=== PATIENT | female | born 1970 | race Two or more races ===

== ENCOUNTER 2017-12-21 12:34 | Emergency (ER) | payer SELFPAY ==
--- NOTE | 2017-12-21 13:05 | EDPHY ---
H & P Stated Complaint: c/o dizziness/elevated bp/lethargy/bilat foot pain x 2-3 days Time Seen by Provider: 12/21/17 13:05 - Medical/Surgical History Hx Asthma: No Hx Chronic Respiratory Disease: No Hx Diabetes: No Hx Cardiac Disease: Yes Hx Renal Disease: No Hx Cirrhosis: No Hx Alcoholism: No Hx HIV/AIDS: No Hx Splenectomy or Spleen Trauma: No Other PMH: hypertension - out of bp meds x 2 weeks, partial thyroidectomy - Social History Smoking Status: Current every day smoker Constitutional: Initial Vital Signs Temperature (C) 36.7 C 12/21/17 12:51 Heart Rate 78 12/21/17 12:51 Respiratory Rate 16 12/21/17 12:51 Blood Pressure 205/114 H 12/21/17 12:51 O2 Sat (%) 93 12/21/17 12:51 O2 Delivery Mode Room Air Allergies/Adverse Reactions: No Known Allergies Allergy (Unverified 12/21/17 12:56) Home Medications: Medication Instructions Recorded Lisinopril 10 mg PO DAILY #30 tablet 12/21/17 Unk Bp Med 12/21/17 Medical Decision Making ED Course/Re-evaluation: CHIEF COMPLAINT: Dizziness, off blood pressure meds HISTORY OF PRESENT ILLNESS: The patient is a 47 y/o female with a history of hypertension arriving with her son complaining of room-spinning dizziness for the last 2-3 days. She has associated nausea, but no vomiting. She has experienced similar symptoms once before when she was off her antihypertensives. She has been off her blood pressure medications for 2-3 months as she recently moved to [place] and has no local provider. She does not know the name of the medication she was on and says it was dispensed to her from a hospital in [place]. She denies severe headache, vision changes, weakness, paresthesias, slurred speech, fever, recent trauma, or recent illness. REVIEW OF SYSTEMS: A comprehensive 10 system review of systems is otherwise negative aside from elements mentioned in the history of present illness and medical decision making. PHYSICAL EXAM: HR, BP 205/114, O2 Sat, RR. Temp noted General Appearance: Alert, well hydrated, appropriate, and non-toxic appearing. Head: Atraumatic without scalp tenderness or obvious injury Eyes: Pupils equal, round, reactive to light and accommodation, EOMI, no trauma , no injection. Nose: Atraumatic, no rhinorrhea, clear. Throat: Mucus membranes moist. Neck: Supple, nontender, no lymphadenopathy. Respiratory: No retractions, no distress, no wheezes, and no accessory muscle use. Lungs are clear to auscultation bilaterally. Cardiovascular: Regular rate and rhythm, no murmurs, rubs, or gallops. Good capillary refill all extremities. Gastrointestinal: Abdomen is soft, nontender, non-distended, no masses, no rebound, no guarding, no peritoneal signs. Musculoskeletal: Normal active ROM of all extremities, atraumatic. Neurological: Alert, appropriate, and interactive. The patient has non-focal cranial nerves, motor, sensory, and cerebellar exam. Skin: No rashes, good turgor, no nodules on palpation. Past medical history: Hypertension Past surgical history: Noncontributory Family history: Noncontributory Social history: Son at bedside. Recently [place]. No local providers. DIFFERENTIAL DIAGNOSIS: The differential diagnosis for the patient's dizziness included but was not limited to peripheral and central causes of vertigo, orthostatic causes including dehydration, cardiogenic and neurogenic causes, and blood loss. MEDICAL DECISION MAKING: This is a 47 y/o female with a history of hypertension now off medications for 2 -3 months who presents with a 2-3-day history of room-spinning dizziness and nausea. Symptoms feel similar to prior episode when she was off her medications. She has a normal exam with no focal deficits. Plan for IV, labs, symptom management. Meclizine PO 25mg ordered WBC is elevated. UA ordered. Kidney function is normal. 10mg PO lisinopril ordered. Reassessed patient. She is feeling improved. Case management has arranged an outpatient visit for her at [facility] to establish care. She will be discharged with script for lisinopril along with standard care instructions. Return precautions discussed. She and her son are comfortable with this plan. - Data Points Laboratory Results: Laboratory Results 12/21/17 13:20 12/21/17 13:20 12/21/17 12/21/17 12/21/17 15:01 13:33 13:20 WBC RBC Hgb Hct MCV MCH MCHC RDW Plt Count MPV Neut % (Auto) Lymph % (Auto) Ripley % (Auto) Eos % (Auto) Baso % (Auto) Nucleat RBC Rel Count Absolute Neuts (auto) Absolute Lymphs (auto) Absolute Monos (auto) Absolute Eos (auto) Absolute Basos (auto) Absolute Nucleated RBC Immature Gran % Seg Neutrophils % Band Neutrophils % Lymphocytes % Monocytes % Eosinophils % Basophils % Metamyelocytes % Myelocytes % Promyelocytes % Blast Cells % Immature Gran # Absolute Seg Neuts Absolute Band Neuts Absolute Lymphocytes Absolute Monocytes Absolute Eosinophils Absolute Basophils Absolute Metamyelocyte Absolute Myelocytes Absolute Promyelocytes Absolute Plasma Cells Absolute Blast Cells Plasma Cells % Smudge Cells Platelet Estimate Polychromasia Microcytic Cells Echinocytes Elliptocytes Smear Review By Sodium 137 mEq/L mEq/L (135-145) Potassium 4.5 mEq/L mEq/L (3.3-5.0) Chloride 104 mEq/L mEq/L (97-110) Carbon Dioxide 25 mEq/l mEq/l (22-31) Anion Gap 8 mEq/L mEq/L (6-14) BUN 12 mg/dL mg/dL (7-23) Creatinine 0.6 mg/dL mg/dL (0.6-1.0) Estimated GFR > 60 Glucose 90 mg/dL mg/dL (70-100) Calcium 9.3 mg/dL mg/dL (8.5-10.4) POC Troponin I 0.01 ng/mL ng/mL (0.00-0.08) Urine Color PALE YELLOW Urine Appearance CLEAR Urine pH 6.0 (5.0-7.5) Ur Specific Udell 1.008 (1.002-1.030) Urine Protein NEGATIVE (NEGATIVE) Urine Ketones NEGATIVE (NEGATIVE) Urine Blood NEGATIVE (NEGATIVE) Urine Nitrate NEGATIVE (NEGATIVE) Urine Bilirubin NEGATIVE (NEGATIVE) Urine Urobilinogen NEGATIVE EU EU (0.2-1.0) Ur Leukocyte Esterase NEGATIVE (NEGATIVE) Urine RBC 1-3 /hpf /hpf (0-3) Urine WBC 1-3 /hpf /hpf (0-3) Ur Epithelial Cells TRACE /lpf /lpf (NONE-1+) Urine Glucose NEGATIVE (NEGATIVE) 12/21/17 13:20 WBC 16.55 10^3/uL H 10^3/uL (3.80-9.50) RBC 5.44 10^6/uL H 10^6/uL (4.18-5.33) Hgb 12.6 g/dL g/dL (12.6-16.3) Hct 40.9 % % (38.0-47.0) MCV 75.2 fL L fL (81.5-99.8) MCH 23.2 pg L pg (27.9-34.1) MCHC 30.8 g/dL L g/dL (32.4-36.7) RDW 18.1 % H % (11.5-15.2) Plt Count 231 10^3/uL 10^3/uL (150-400) MPV 11.8 fL H fL (8.7-11.7) Neut % (Auto) 39.2 % L % (39.3-74.2) Lymph % (Auto) 55.9 % H % (15.0-45.0) Ripley % (Auto) 3.7 % L % (4.5-13.0) Eos % (Auto) 0.5 % L % (0.6-7.6) Baso % (Auto) 0.3 % % (0.3-1.7) Nucleat RBC Rel Count 0.0 % % (0.0-0.2) Absolute Neuts (auto) 6.49 10^3/uL 10^3/uL (1.70-6.50) Absolute Lymphs (auto) 9.25 10^3/uL H 10^3/uL (1.00-3.00) Absolute Monos (auto) 0.61 10^3/uL 10^3/uL (0.30-0.80) Absolute Eos (auto) 0.09 10^3/uL 10^3/uL (0.03-0.40) Absolute Basos (auto) 0.05 10^3/uL 10^3/uL (0.02-0.10) Absolute Nucleated RBC 0.00 10^3/uL 10^3/uL (0-0.01) Immature Gran % 0.4 % % (0.0-1.1) Seg Neutrophils % 38.0 % % Band Neutrophils % 3.0 % % Lymphocytes % 57.0 % % Monocytes % 2.0 % % Eosinophils % 0.0 % % Basophils % 0.0 % % Metamyelocytes % 0.0 % % Myelocytes % 0.0 % % Promyelocytes % 0.0 % % Blast Cells % 0.0 % % Immature Gran # 0.06 10^3/uL 10^3/uL (0.00-0.10) Absolute Seg Neuts 6.29 10^/uL 10^/uL (1.70-6.50) Absolute Band Neuts 0.50 10^3/uL 10^3/uL (0.00-0.70) Absolute Lymphocytes 9.43 10^3/uL H 10^3/uL (1.00-3.00) Absolute Monocytes 0.33 10^3/uL 10^3/uL (0.30-0.80) Absolute Eosinophils 0.00 10^3/uL L 10^3/uL (0.03-0.40) Absolute Basophils 0.00 10^3/uL L 10^3/uL (0.02-0.10) Absolute Metamyelocyte 0.00 10^3/mL 10^3/mL (0.00-0.00) Absolute Myelocytes 0.00 10^3/mL 10^3/mL (0.00-0.00) Absolute Promyelocytes 0.00 10^3/uL 10^3/uL (0.00-0.00) Absolute Plasma Cells 0.00 10^3/uL 10^3/uL (0.00-0.00) Absolute Blast Cells 0.00 10^3/uL 10^3/uL (0.00-0.00) Plasma Cells % 0.0 % % Smudge Cells 1+ H Platelet Estimate ADEQUATE (ADEQ) Polychromasia 1+ H Microcytic Cells 1+ H Echinocytes 1+ H Elliptocytes 1+ H Smear Review By Pending Sodium Potassium Chloride Carbon Dioxide Anion Gap BUN Creatinine Estimated GFR Glucose Calcium POC Troponin I Urine Color Urine Appearance Urine pH Ur Specific Udell Urine Protein Urine Ketones Urine Blood Urine Nitrate Urine Bilirubin Urine Urobilinogen Ur Leukocyte Esterase Urine RBC Urine WBC Ur Epithelial Cells Urine Glucose Medications Given: Discontinued Medications Sodium Chloride (Ns) 1,000 mls @ 0 mls/hr IV EDNOW ONE; Wide Open PRN Reason: Protocol Stop: 12/21/17 13:12 Last Admin: 12/21/17 13:26 Dose: 1,000 mls Lisinopril (Zestril) 10 mg PO EDNOW ONE Stop: 12/21/17 14:16 Last Admin: 12/21/17 14:48 Dose: 10 mg Meclizine HCl (Meclizine Hcl) 25 mg PO EDNOW ONE Stop: 12/21/17 13:12 Last Admin: 12/21/17 13:26 Dose: 25 mg Point of Care Test Results: Chemistry 12/21/17 13:33 POC Troponin I 0.01 ng/mL ng/mL (0.00-0.08) Departure - Departure Disposition: Home, Routine, Self-Care Clinical Impression: Dizziness Hypertension Qualifiers: Hypertension type: unspecified Qualified Code(s): I10 - Essential (primary) hypertension Condition: Good Instructions: Lisinopril (By mouth), Hypertension (ED) Additional Instructions: 1. Take lisinopril as prescribed daily. 2. Follow up with primary care provider next week to establish care and for long -term prescription refills. 3. Return to the ED for worsening of condition. You have a follow up appointment scheduled at [facility] on Sunday at 9:[address] AM [address] [address] Please arrive on time and let someone know you are there for financial screening at 9:00 and then an appointment with Brenda Becker at 9:30 Bring your photo ID and insurance card (if you have one) AND ANY medications you are taking You will be responsible for a $20 co-pay. If possible, please bring this to your appointment Referrals: [facility],. [Clinic] - As per Instructions Prescriptions: Lisinopril 10 mg PO DAILY #30 tablet Report Scribed for: Manny Vogt Report Scribed by: Paige Gutierrez Date of Report: 12/21/17 Time of Report: 13:16
[2017-12-21] MEDS: MECLIZINE HCL 25 MG TAB PO ONE (13:26)
[2017-12-21] MEDS: NS 1,000 ML IV ONE (13:26)
[2017-12-21 13:45] LABS: PLATELET COUNT 231 10^3/uL (150-400)
[2017-12-21] MEDS: LISINOPRIL 20 MG TAB PO ONE (14:48)
[2017-12-21 15:53] VITALS: BP 189/93
--- NOTE | 2017-12-21 15:58 | ASMTCMCOM ---
CM Note CM Note Notes: Patient is currently living in [place] but states that they may be re-locating to [place]. Patient is covered by Medicaid in [place] (ID #[id number]). I have encouraged patient to follow up at [facility] after this ER visit for financial screening and to establish PCP if she is going to stay in [place]. Patient would like to do this and I have made a follow up appointment for patient on January 01 at 0900 for financial screening and 0930 to see Brenda Becker. Patient understands that she will be responsible for a $20 co-pay at the time of this visit, and will need to follow through with Medicaid application and/or self pay plan within 30 days of this appointment Date Signed: 12/21/2017 03:55 PM Electronically Signed By:Amy Pichardo RN
== END 2017-12-21 16:08 | disposition home or self-care (01) ==
DX: R42 Dizziness and giddiness (principal); I10 Essential (primary) hypertension
CPT/HCPCS: 84484-PO